=== PATIENT | male | born 1955 | race Hispanic/Latino ===

== ENCOUNTER 2017-06-06 14:26 | Emergency (ER) | payer SELFPAY ==
--- NOTE | 2017-06-06 15:12 | RAD ---
THREE VIEWS LEFT WRIST: HISTORY: Fall, left wrist injury. FINDINGS: AP, lateral, and oblique views of left wrist were obtained. Images demonstrate a partially impacted comminuted fracture involving the distal left radius. The fr acture extends into the articulating surface and the distal fracture fragment has at least 2 separate components. There is also an area of lucency through the ulnar styloid. This represents a fracture of indeterminate age and may be more chronic or may be acute. IMPRESSION: 1. Comminuted distal radial fracture extending intraarticularly. 2. Ulnar styloid fracture of indeterminate age. POS: [facility]
--- NOTE | 2017-06-06 15:14 | RAD ---
THREE VIEWS LEFT ANKLE: FINDINGS: AP, lateral, and oblique views of the left ankle were obtained. Images demonstrate an area of lucency involving the posterior aspect of the calcaneus compatible with a calcaneal fracture. There is a tiny area of calcification adjacent and inferior to the medial malleolus concerning for a small avulsion fracture. There is also marked swelling along the lateral aspect of the left ankle. This may represent an area of lateral left ankle hematoma possibly from significant ligamentous injury. IMPRESSION: 1. Small medial avulsion fracture. 2. Findings suggesting a posterior calcaneal fracture. 3. Extensive lateral aspect left ankle soft tissue swelling. POS: [facility]
[2017-06-06] MEDS ORDERED: Ibuprofen 800 MG TAB ONE (16:09)
[2017-06-06] MEDS ORDERED: Acetaminophen 325 MG TAB ONE (16:09)
[2017-06-06] MEDS ORDERED: HYDROcodone/Acetaminophen 10/325 mg Tablet ONE (16:09)
== END 2017-06-06 16:51 | disposition short-term general hospital (02) ==
LOC: MADERS 14:26
DX: S52.502A Unspecified fracture of the lower end of left radius, initial encounter for closed fracture (principal); S52.612A Displaced fracture of left ulna styloid process, initial encounter for closed fracture; S92.002A Unspecified fracture of left calcaneus, initial encounter for closed fracture; W18.30XA Fall on same level, unspecified, initial encounter
CPT/HCPCS: 29125